=== PATIENT | female | born 1995 | race American Indian/Alaskan Native ===

== ENCOUNTER 2017-02-27 02:32 | Emergency (ER) | payer MEDICAID ==
[2017-02-27 04:42] LABS: Bilirubin,Urine NEG (Negative); Blood,Urine NEG (Negative); Granular Casts,Urine 4 /LPF; Ketones,Urine NEG (Negative); Leukocyte Esterase,Urine NEG (Negative); Mucus,Urine FEW /HPF; Nitrite,Urine NEG (Negative); Protein,Urine <15 mg/dL mg/dL (Negative); Urobilinogen,Urine < 2.0 mg/dL (<2.0)
--- NOTE | 2017-02-27 05:50 | Ultrasound Report ---
FINAL REPORT PROCEDURE: US OB transabdominal and transvaginal TECHNIQUE: Real-time transabdominal and transvaginal sonography of the uterus, placenta, amniotic fluid, adnexa, and fetus was performed with image documentation. Measurements were obtained to determine age/size. M-mode Doppler was used to document heartbeat. CPT 52171 and 03825 HISTORY: PREG/LOWER ABD PAIN COMPARISON: No prior studies are available for comparison. FINDINGS: ADDITIONAL GESTATION: None. CRL: 20 mm, which corresponds to a gestational age of: 8 weeks, 5 days. Yolk Sac: Normal. Embryonic Cardiac Activity: 169 beats per minute Gestational Sac: Normal. Amniotic fluid: Normal. Cervix: Normal. Right Ovary: Normal. Left Ovary: Normal. Estimated delivery date: 10/04/2017 Uterus and adnexa: Normal. IMPRESSION: 1. Single live intrauterine gestation at approximately 8 weeks, 5 days. 2. EDC by US 10/04/2017 3. Complete anatomic survey at 18-20 weeks suggested.
--- NOTE | 2017-02-27 05:51 | Ultrasound Report ---
FINAL REPORT PROCEDURE: US OB transabdominal and transvaginal TECHNIQUE: Real-time transabdominal and transvaginal sonography of the uterus, placenta, amniotic fluid, adnexa, and fetus was performed with image documentation. Measurements were obtained to determine age/size. M-mode Doppler was used to document heartbeat. CPT 71439 and [id number] HISTORY: PREG/LOWER ABD PAIN COMPARISON: No prior studies are available for comparison. FINDINGS: ADDITIONAL GESTATION: None. CRL: 20 mm, which corresponds to a gestational age of: 8 weeks, 5 days. Yolk Sac: Normal. Embryonic Cardiac Activity: 169 beats per minute Gestational Sac: Normal. Amniotic fluid: Normal. Cervix: Normal. Right Ovary: Normal. Left Ovary: Normal. Estimated delivery date: 10/04/2017 Uterus and adnexa: Normal. IMPRESSION: 1. Single live intrauterine gestation at approximately 8 weeks, 5 days. 2. EDC by US 10/04/2017 3. Complete anatomic survey at 18-20 weeks suggested.
[2017-02-27 06:38] VITALS: BP 108/60
== END 2017-02-28 00:29 | disposition left against medical advice (07) ==
LOC: ED 02:32
DX: R10.30 Lower abdominal pain, unspecified (principal); Z53.21 Procedure and treatment not carried out due to patient leaving prior to being seen by health care provider
CPT/HCPCS: 36415; 76801; 76817; 81001; 84702